=== PATIENT | male | born 1955 | race Caucasian/White ===

== ENCOUNTER 2019-03-06 19:33 | Emergency (ER) | payer SELFPAY ==
[~2019-03-06] VITALS: Ht 188 cm; Wt 106.0 kg
[2019-03-06] MEDS ORDERED: LORazepam 1 MG tablet PO ONE (20:50)
[2019-03-06] MEDS ORDERED: BUPIVAcaine/PF 7.5mg/ml (0.75%) 10ml vial IJ ONE (20:55)
[2019-03-06] MEDS ORDERED: ceFAZolin 1GM/D5W- ADD-VANTAGE 50 ML IV ONE ×3 (21:35→21:50)
[2019-03-06] MEDS ORDERED: cephalexin 250mg capsule PO ONE (21:40)
[2019-03-06] MEDS ORDERED: CEPH-572 PO (23:09)
[2019-03-06] MEDS ORDERED: HYDR-3965 PO (23:09)
[2019-03-06 23:16] VITALS: BP 153/97
== END 2019-03-06 23:17 | disposition home or self-care (01) ==
LOC: ER 19:34
DX: S51.812A Laceration without foreign body of left forearm, initial encounter (principal); Z79.2 Long term (current) use of antibiotics; Z79.899 Other long term (current) drug therapy; W26.8XXA Contact with other sharp object(s), not elsewhere classified, initial encounter; Y93.89 Activity, other specified; Y92.89 Other specified places as the place of occurrence of the external cause; Y99.8 Other external cause status
CPT/HCPCS: 12037; 73090; 96365; 99284; J0690; J3490; 96368; 99283

== ENCOUNTER 2025-03-12 18:46 | Emergency (ER) | payer MEDICARE, BC ==
[~2025-03-12] VITALS: Ht 188 cm; Wt 82.6 kg
[2025-03-12 18:52] VITALS: TEMP 98.6
--- NOTE | 2025-03-12 18:59 | Physician Documentation ---
History of Present Illness ~ Stated Complaint: LAC LT THUMB Time Seen by MD: 19:10 OK to notify your PCP?: Yes Source: patient Mode of Arrival: POV Exam Limitations: no limitations HPI 69-year-old male presents for laceration to the base of left thumb on the palmar side. He states he was using a new razor blade to create caulking off the bathroom and it slipped. He denies any HI or SI. Denies any blood thinner use. Bleeding was controlled in triage with pressure and dressing. Last tetanus vaccine was last year. Medication Reconciliation Allergies: Coded Allergies: No Known Allergies (Unverified , 03/12/25) Past Medical History Past Medical History: No Pertinent History Alcohol Use: Occasionally Drug Use: none Lives In: Home Review of Systems All Other Systems at this time: Reviewed and Negative Physical Exam Vital Signs: RN Vital Signs have been reviewed: Yes Pulse Oximetry Reflects: adequate oxygenation Physical Exam General: Alert, no distress. Neurologic: Oriented x4. Psychiatric: Normal mood and affect. Skin: Normal color, warm and dry. Superficial laceration approximately 3-1/2 cm in length to palmar surface at the base of left thumb, bleeding controlled. Procedures Laceration/Wound Repair : Anesthesia: Lidocaine Prep: irrigated by physician Repaired: skin, subcutaneous Wound Repaired With: sutures Number of Superficial Sutures: 7 Deep Layer Suture Size/Type: 4-0 Dressing Applied: non-adherent Tolerated Procedure Well?: yes, no complications Progress Results/Orders Results/Orders Orders - LUCIANO CALZADA NP Laceration/I&D Tray Set Up (03/12/25 ) Completed Orders - LUCIANO CALZADA [employer] STORAGE CLERK Lidocaine 1% 30ml Vial (Xylocaine 1% Via (03/12/25 19:52) Vital Signs 03/12/25 18:52 Temp 98.6 Pulse 79 Resp 16 B/P (MAP) 124/82 Pulse Ox 100 O2 Flow Rate 0 Medical Decision Making Findings [place] on laceration on the palmar aspect of the left thumb. 7 sutures. Patient tolerated procedure well wound is well approximated Departure Disposition: 01 HOME / SELF CARE / HOMELESS Impression: Primary Impression: Laceration Condition: Stable Discharge Instructions: Laceration Care, Adult, [id number] Additional Instructions: Sutures can be removed in 7-10 days keep the area clean and dry for Referrals: NO PRIMARY CARE PROVIDER (PCP) Additional Comment Medical Screen Exam General: Alert, no distress. HEENT: No injection, moist mucous membranes. Neck: Full range of motion. Respiratory: No respiratory distress, equal chest rise and fall. Chest: No accessory muscle use. Cardiovascular: Regular rate and rhythm. Gastrointestinal: Nondistended. Extremities: Normal range of motion, no deformity. Neurologic: Oriented x4. Psychiatric: Normal mood and affect. Skin: Normal color, warm and dry. Signature Scribe Signature: t Attestation: Scribed for Luciano Calzada Life Skills Coordinator by Luciano Shukla NP . 03/12/25 20:26 KUSHAL TAFOYA FLORICULTURIST Mar 12, 2025 18:59 LUCIANO CALZADA NP Mar 12, 2025 20:25
[2025-03-12] MEDS: LIDOcaine 1% 30ml preserv. free vial SQ STA (20:13)
[2025-03-12] MEDS: TETanus/Pertussis (Acell)/Diphther VAC/PF (Tdap-Adult) 0.5ml syringe IMVAC ONE (20:51)
[2025-03-12 20:57] VITALS: BP 146/88; PULSE 70; RESP 18; O2SAT 97
== END 2025-03-12 20:57 | disposition home or self-care (01) ==
LOC: ER 18:48
DX: S61.012A Laceration without foreign body of left thumb without damage to nail, initial encounter (principal); W26.8XXA Contact with other sharp object(s), not elsewhere classified, initial encounter; Y93.89 Activity, other specified; Y92.89 Other specified places as the place of occurrence of the external cause; Y99.8 Other external cause status
CPT/HCPCS: 12002; 90715; 99283; A6402; G0008; J7030; Z7610; 90471; A6449